=== PATIENT | female | born 1965 | race Caucasian/White ===

== ENCOUNTER 2016-12-21 05:17 | Emergency (ER) | payer OTHER ==
[~2016-12-21] VITALS: Ht 172.7 cm; Wt 104.5 kg
[2016-12-21] MEDS ORDERED: SODIUM CHLORIDE 0.9% 1,000 ML IV ONE (05:54)
[2016-12-21] MEDS ORDERED: MORPHINE SULFATE 4 MG/ML, 1ML IVPush PRN (06:00)
[2016-12-21] MEDS ORDERED: ONDANSETRON 2MG/ML, 2ML IVPush ONE (06:00)
[2016-12-21] MEDS ORDERED: SODIUM CHLORIDE 0.9% 1,000ML IVBOLUS ONE (06:00)
[2016-12-21] MEDS ORDERED: ONDANSETRON 2MG/ML, 2ML ONE (06:18)
[2016-12-21] MEDS ORDERED: HYDROmorphone 1 MG/ML, 1ML ONE ×2 (06:18→06:54)
[2016-12-21] MEDS: HYDROmorphone 1 MG/ML, 1ML IVPush PRN ×2 (06:23→07:00)
[2016-12-21 06:44] LABS: ASPARTATE AMINO TRANSFERASE 28 U/L (15-37); BLOOD UREA NITROGEN 18 mg/dL (7-18)
[2016-12-21 08:15] VITALS: BP 143/90
== END 2016-12-21 08:18 | disposition home or self-care (01) ==
LOC: ED 07:09
DX: K80.20 Calculus of gallbladder without cholecystitis without obstruction (principal); I10 Essential (primary) hypertension
CPT/HCPCS: 36415; 74176; 80053; 81001; 83690; 85025; 87086; 93005; 96374; 96375; 96376; 99285; J1170; J2405; J7030

== ENCOUNTER 2017-12-31 21:40 | Emergency (ER) | payer OTHER ==
[~2017-12-31] VITALS: Ht 172.7 cm; Wt 103.5 kg
[2017-12-31] MEDS ORDERED: PROPARACAINE OPHTH 0.5%, 15ML ONE (22:07)
[2017-12-31] MEDS ORDERED: DEXAMETHASONE 1 MG TABLET PO STA (22:25)
[2017-12-31] MEDS ORDERED: DEXAMETHASONE 4 MG TABLET ONE (22:30)
[2017-12-31] MEDS ORDERED: DEXAMETHASONE 4 MG TABLET PO STA (22:38)
== END 2017-12-31 23:38 | disposition home or self-care (01) ==
LOC: ED 23:24
DX: H10.31 Unspecified acute conjunctivitis, right eye (principal); B30.9 Viral conjunctivitis, unspecified; J02.9 Acute pharyngitis, unspecified; B97.89 Other viral agents as the cause of diseases classified elsewhere; I10 Essential (primary) hypertension; Z88.1 Allergy status to other antibiotic agents; Z98.51 Tubal ligation status
CPT/HCPCS: 87081; 87880; 99284

== ENCOUNTER 2018-05-19 19:22 | Emergency (ER) | payer OTHER ==
[~2018-05-19] VITALS: Ht 172.7 cm; Wt 100.0 kg
[2018-05-19] MEDS ORDERED: NAPR220C2 PO (21:03)
[2018-05-19] MEDS ORDERED: AMOX875T PO (21:03)
[2018-05-19] MEDS ORDERED: PROCHLORPERAZINE 5 MG/ML, 2ML ONE (21:23)
[2018-05-19] MEDS ORDERED: KETOROLAC 30 MG/1 ML ONE (21:23)
[2018-05-19] MEDS ORDERED: DIPHENHYDRAMINE 50 MG/ML, 1ML ONE (21:23)
[2018-05-19] MEDS ORDERED: DIPHENHYDRAMINE 50 MG/ML, 1ML IVPush ONE (21:30)
[2018-05-19] MEDS ORDERED: PROCHLORPERAZINE 5 MG/ML, 2ML IVPush ONE (21:30)
[2018-05-19] MEDS ORDERED: KETOROLAC 30 MG/1 ML IVPush ONE (21:30)
[2018-05-19 22:02] VITALS: BP 154/99
== END 2018-05-19 22:04 | disposition home or self-care (01) ==
LOC: ED 21:58
DX: G44.219 Episodic tension-type headache, not intractable (principal); K08.89 Other specified disorders of teeth and supporting structures; H92.02 Otalgia, left ear; I10 Essential (primary) hypertension
CPT/HCPCS: 96374; 96375; 99283; J0780; J1200; J1885

== ENCOUNTER 2018-07-29 19:50 | Emergency (ER) | payer OTHER ==
[~2018-07-29] VITALS: Ht 172.7 cm; Wt 98.2 kg
[~2018-07-29 19:50] MED LIST: AMOX875T PO; NAPR220C2 PO
--- NOTE | 2018-07-29 20:15 | NUR ---
pt to ed for romo, chest "tingling" midline from throat to epigastric area and sore throat x2 days. connected to all monitors. htn, tachy all other vss. awaiting md assessment at this time. call light within reach. no other needs at this time.
[2018-07-29 20:38] LABS: BASOPHILS # (AUTO) 0.03 x10^3/uL (0-0.1); BASOPHILS % (AUTO) 0 % (0-1); EOSINOPHILS # (AUTO) 0.06 x10^3/uL (0-0.4); EOSINOPHILS % (AUTO) 1 % (1-7); LYMPHOCYTES # (AUTO) 1.94 x10^3/uL (1-3.4); LYMPHOCYTES % (AUTO) 24 % (22-44); MD NO; MEAN CORPUSCULAR HEMOGLOBIN 29.8 pg (27.0-34.8); MEAN CORPUSCULAR VOLUME 87.6 fL (80-100); MEAN PLATELET VOLUME 7.2 fL (7.4-10.4); MONOCYTES # (AUTO) 0.75 x10^3/uL (0.2-0.8); MONOCYTES % (AUTO) 9 % (2-9); NEUTROPHILS # (AUTO) 5.39 x10^3/uL (1.8-6.8); NEUTROPHILS % (AUTO) 66 % (42-75); PLATELET COUNT 331 x10^3/uL (130-400); RED BLOOD COUNT 5.69 x10^6/uL (3.82-5.3)
[2018-07-29 20:47] LABS: ALANINE AMINOTRANSFERASE 33 U/L (12-78); ALBUMIN 3.5 g/dL (3.4-5.0); ANION GAP 6 mmol/L (5-15); CALCIUM 8.7 mg/dL (8.5-10.1); CHLORIDE 108 mmol/L (98-107); CREATININE 1.02 mg/dL (0.55-1.02)
--- NOTE | 2018-07-29 20:47 | NUR ---
md to bedside for assessment.
[2018-07-29 20:52] LABS: ALKALINE PHOSPHATASE 114 U/L (45-117); BILIRUBIN,TOTAL 0.7 mg/dL (0.2-1.0); TOTAL PROTEIN 7.4 g/dL (6.4-8.2); TROPONIN I < 0.015 ng/mL (0.000-0.045)
--- NOTE | 2018-07-29 20:59 | NUR ---
new orders received at this time. awaiting flu results. vss. pt resting in room with lights dimmed. no needs at this time.
[2018-07-29 21:05] VITALS: BP 179/122
[2018-07-29 21:48] LABS: RAPID INFLUENZA A Negative (Negative); RAPID INFLUENZA B Negative (Negative)
--- NOTE | 2018-07-29 21:50 | NUR ---
all results back at this time. chart up for recheck.
== END 2018-07-29 22:39 | disposition home or self-care (01) ==
LOC: ED 22:30
DX: J02.9 Acute pharyngitis, unspecified (principal); I10 Essential (primary) hypertension
CPT/HCPCS: 36415; 71046; 80053; 83880; 84484; 85025; 87400; 93005; 99284